=== PATIENT | female | born 2000 | race Caucasian/White ===

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

== ENCOUNTER 2023-09-11 20:46 | Emergency (ER) | payer OTHER, SELFPAY ==
--- NOTE | ~2023-09-11 | XR_ITS ---
EXAMINATION: XR CHEST CLINICAL INFORMATION: Chest pain COMPARISON: None available. TECHNIQUE: 2 views of the chest were obtained. FINDINGS: The cardiac and mediastinal contours are normal. The lungs are clear. No pleural effusion or pneumothorax. Mild thoracolumbar scoliosis. Bony structures are otherwise unremarkable. XR/XR chest 2V IMPRESSION: No evidence for acute disease in the chest.
--- NOTE | 2023-09-11 20:52 | ECG_ITS ---
Test Reason : CHEST PAIN Blood Pressure : / mmHG Vent. Rate : 061 BPM Atrial Rate : 061 BPM P-R Int : 110 ms QRS Dur : 090 ms QT Int : 418 ms P-R-T Axes : 017 077 066 degrees QTc Int : 420 ms Sinus rhythm with short MI Otherwise normal ECG No previous ECGs available Referred By: Ramila Nowak Electronically Signed By:BRENDA MARINO
[2023-09-11 21:22] LABS: Basophils Percent Auto 0.5 % (0-2); Eosinophils Absolute Auto 0.1 X10*3/uL (0.0-0.4); Hematocrit 37.3 % (37.0-47.0); Hemoglobin 13.2 g/dl (12.0-16.0); Imm Gran Abs Auto 0.02 X10*3/uL (0.00-0.03); Imm Gran Pct Auto 0.2 % (0.0-0.4); Lymphocytes Absolute Auto 2.4 X10*3/uL (1.2-4.9); Lymphocytes Percent Auto 27.4 % (20-40); MANUAL DIFF FLAG NO; Mean Corpuscular HGB Conc 35.4 g/dl (31.0-35.0); Mean Corpuscular Hemoglobin 30.8 pg (27.0-33.0); Mean Corpuscular Volume 86.9 fL (80.0-98.0); Monocytes Absolute Auto 0.6 X10*3/uL (0.1-1.2); Monocytes Percent Auto 7.1 % (2-11); Neutrophils Absolute Auto 5.6 x10*3/uL (2.0-8.3); Neutrophils Percent Auto 63.8 % (45-73); Platelet Count 259 X10*3/uL (160-400); Red Blood Count 4.29 X10*6/uL (4.20-5.50); Red Cell Distribution Width 12.4 % (11.0-16.0); White Blood Count 8.8 X10*3/uL (4.8-10.8)
[2023-09-11 21:23] LABS: INTERNATIONAL NORM RATIO 0.9 (0.9-1.1); Prothrombin Time 11.5 SEC (11.1-13.3)
[2023-09-11 21:31] VITALS: BP 117/82; PULSE 50; RESP 18; TEMP 36; O2SAT 100; BMI 19.1
[2023-09-11 21:37] LABS: Alanine Aminotransferase 9 U/L (0-31); Albumin Level 4.3 g/dL (3.5-5.0); Alkaline Phosphatase 35 U/L (39-117); Anion Gap 11 (12-20); Aspartate Amino Transferase 15 U/L (5-31); Bilirubin Total 0.5 mg/dL (0.0-1.0); Blood Urea Nitrogen 10 mg/dL (9-16); Calcium 9.5 mg/dL (8.4-10.2); Carbon Dioxide 28 mmol/L (22-29); Chloride 107 mmol/L (96-108); Creatinine Clr Calc Pharmacy 83.5; Estimated Glomerular Filt Rate > 60; Glucose Random 84 mg/dL (60-115); Lipase 22 U/L (8-78); Magnesium 2.1 mg/dL (1.6-2.6); Potassium 4.6 mmol/L (3.3-5.1); Sodium 141 mmol/L (135-145)
[2023-09-11 21:38] LABS: HCG Quantitative < 2 mIU/mL; Troponin-I High Sensitivity < 2.7 ng/L (<3.5-17.0)
[2023-09-11 23:17] VITALS: BP 123/80; PULSE 60; RESP 16; TEMP 36.4; O2SAT 100
--- NOTE | 2023-09-12 00:06 | ED.CHESTPAIN ---
HPI - Chest Pain General Chief Complaint: Chest Pain Stated Complaint: Chest pain Time Seen by Provider: 09/11/23 23:17 History of Present Illness HPI narrative: Patient is 23 years old presents today with having chest pain that is mid chest it is sharp. Nonradiating. Generalized malaise. Denies any shortness of breath no nausea no vomiting. Took an ibuprofen with only moderate relief. Patient from home. No history of diabetes, hypertension, high cholesterol, smoking, mi. no history of recreational drug use. No history of leg swelling. No history of blood clots. Patient is from home. Related Data Allergies Allergy/AdvReac Type Severity Reaction Status Date / Time amoxicillin Allergy Rash Verified 09/11/23 21:31 Review of Systems Review of Systems: Positive chest pain mid chest Yes all other systems are reviewed and are negative PMFSH Past Medical History Attestation statement: The following information was validated with the patient. Onset Date is defined in the Problem List Problems that require an onset date and time if occurred within 24 hrs of arrival to the ED Aortic Dissection and Rupture; Neurologic impairment; Cardiopulmonary Arrest; Endotracheal Intubation; Insertion or Replacement of Mechanical Circulatory Assist Device Social History Social History Alcohol intake: current Alcohol intake frequency: a few times a month Smoked in Last 30 Days: No Use of substances other than those prescribed or required for medical reasons: No Advance Directives: No Advance Directives Information Provided: Yes Patient : No Physical Exam Vital Signs: Vital Signs: Last Vital Signs Temp 97.5 F 09/11/23 23:17 Pulse 60 09/11/23 23:17 Resp 16 09/11/23 23:17 BP 123/80 09/11/23 23:17 Pulse Ox 100 09/11/23 23:17 O2 Del Method Room Air 09/11/23 23:17 BMI result Body Mass Index 19.1 Appearance: Alert. Oriented X3. No acute distress. Eyes: Pupils equal, round and reactive to light. ENT: Pharynx normal. Neck: Normal inspection. Neck supple. No lymph nodes noted. No crepitus CVS: Normal heart rate and rhythm. Pulses normal. Normal S1 and S2 Respiratory: No respiratory distress. Breath sounds normal. No Wheezing. No rales Abdomen: Soft and nontender. No rigidity. No distention. good BS x4 Skin: Skin warm and dry. Normal skin color. Normal skin turgor. Extremities: No lower extremity edema. Neurovascular intact to all extremities. No Lacerations. No Rash Neuro: Oriented X 3. No motor deficit. No sensory deficit. Moving all extermities. No slurred speech Medical Decision Making Medical Decision Making [facility] Narrative: My interpretation patient's EKG showed a sinus rhythm heart rate is 60 NH QRS QTC within normal limits is no acute ST segment elevation. My interpretation patient's chest x-ray is grossly negative. There has no evidence of pneumonia there is no evidence of pneumothorax there is no evidence of rib fracture patient's troponin x1 set was negative. In the setting of extremely low risk no cardiac risk factors she is 23 years old unlikely to have an ACS. Patient has no risk for PE. Here comfortable letting the patient go. Follow-up on outpatient basis. Differential Diagnosis Differential Diagnoses: The differential diagnosis associated with the presentation includes Atypical chest pain, ACS, pneumonia, pneumothorax, PE Admission/Observation Consideration of admission/observation: Escalation of care including admission/observation considered No need for admission as patient is well-appearing Lab Data [facility] Lab Attestation statement: I reviewed the patient's lab results. 09/11/23 20:59 09/11/23 20:58 Labs: Lab Results 09/11/23 09/11/23 09/11/23 Range/Units 20:58 20:59 21:09 WBC 8.8 (4.8-10.8) X10*3/uL RBC 4.29 (4.20-5.50) X10*6/uL Hgb 13.2 (12.0-16.0) g/dl Hct 37.3 (37.0-47.0) % MCV 86.9 (80.0-98.0) fL MCH 30.8 (27.0-33.0) pg MCHC 35.4 H (31.0-35.0) g/dl RDW 12.4 (11.0-16.0) % Plt Count 259 (160-400) X10*3/uL MPV 10.0 (9.4-12.3) fL Immature Gran % (Auto) 0.2 (0.0-0.4) % Neut % (Auto) 63.8 (45-73) % Lymph % (Auto) 27.4 (20-40) % Floyd % (Auto) 7.1 (2-11) % Eos % (Auto) 1.0 (0-4) % Baso % (Auto) 0.5 (0-2) % Lymph # (Auto) 2.4 (1.2-4.9) X10*3/uL Floyd # (Auto) 0.6 (0.1-1.2) X10*3/uL Eos # (Auto) 0.1 (0.0-0.4) X10*3/uL Baso # (Auto) 0.0 (0.0-0.2) X10*3/uL Abs Immat Gran (auto) 0.02 (0.00-0.03) X10*3/uL Absolute Neuts (auto) 5.6 (2.0-8.3) x10*3/uL Absolute Nucleated RBC 0.000 (0.0-0.012) X10*3/uL Nucleated RBC % (auto) 0.0 (0.0-0.2) /100WBC PT 11.5 (11.1-13.3) SEC INR 0.9 (0.9-1.1) Hold Blue Top SEE NOTE Sodium 141 (135-145) mmol/L Potassium 4.6 (3.3-5.1) mmol/L Chloride 107 (96-108) mmol/L Carbon Dioxide 28 (22-29) mmol/L Anion Gap 11 L (12-20) BUN 10 (9-16) mg/dL Creatinine 0.87 (0.5-1.4) mg/dL Estim Creat Clear Calc 83.5 Estimated GFR > 60 Random Glucose 84 (60-115) mg/dL Calcium 9.5 (8.4-10.2) mg/dL Magnesium 2.1 (1.6-2.6) mg/dL Total Bilirubin 0.5 (0.0-1.0) mg/dL AST 15 (5-31) U/L ALT 9 (0-31) U/L Alkaline Phosphatase 35 L (39-117) U/L Troponin I High Sens < 2.7 (<3.5-17.0) ng/L Total Protein 7.0 (6.5-8.0) g/dL Albumin 4.3 (3.5-5.0) g/dL Lipase 22 (8-78) U/L Beta HCG, Quant < 2 mIU/mL Independent Interpretation I performed an independent interpretation of an: EKG (Sinus heart rate is 60 NH QRS QTC within normal limits is no acute ST segment elevation) and Plain X-Ray (Chest x-ray grossly negative) Radiology Impression Discussion of test interpretation with radiology: I have reviewed the radiologist's reading. Prescription Management No need for additional pain medication patient well-appearing Chronic Conditions No significant past medical history Discharge Plan Discharge Clinical Impression: Atypical chest pain Patient Disposition: Home, Self-Care Instructions: Chest Pain (ED) Referrals: Brad Adams MD [Physician] - 09/14/23
[2023-09-12 00:16] VITALS: BP 128/67; PULSE 52; RESP 14; TEMP 36.6; O2SAT 100
== END 2023-09-12 00:23 | disposition home or self-care (01) ==
PROVIDERS: Physician Assistant Medical; Emergency Provider Emergency Medicine Emergency Medical Services
DX: R07.89 Other chest pain (principal)
CPT/HCPCS: 36415; 71046; 80053; 83690; 83735; 84484; 84702; 85025; 85610; 93005; 99283; 99284

== ENCOUNTER → 2023-09-11 20:52 | Outpatient (BNV) | payer OTHER, SELFPAY | PROVIDERS: Emergency Provider Emergency Medicine Emergency Medical Services; Visit Provider Internal Medicine | DX: R07.9 Chest pain, unspecified (principal) | CPT/HCPCS: 93010 ==

== ENCOUNTER 2024-05-31 08:09 | Outpatient (AMB) | payer OTHER, SELFPAY ==
--- NOTE | 2024-05-31 08:22 | MHC.OFFWIV ---
Intake Vital Signs 05/31/24 08:23 Height 5 ft 5 in Weight 125 lb BMI 20.8 BP 112/70 Blood Pressure Location Lt brachial Position Sitting Pulse 69 Pulse Source Pulse Oximeter Temp 98.2 F Temp Source Oral Pulse Oximetry (%) 96 Oxygen Delivery Method Room Air Intake Visit Reasons: EP cough, chest pain, phlegm Intake Note: Patient here for cough, congestion headaches and slight chest pain when coughing. Patient Tobacco Use Status: Never used Tobacco Allergies amoxicillin Allergy (Verified 05/31/24 08:24) Rash Do you need a note to return to daycare/school/sports/work: No HPI HPI Comments History of Present Illness Details Patient is a 24-year-old female complaining of a productive cough with yellow phlegm, shortness of breath after she coughs and chest congestion for 5 days. She tells me she did have some headaches when she 1st got sick but those have resolved. She denies any fevers, nausea, vomiting, diarrhea, sinus pain, ear pain or history of asthma. She states she did not test for COVID at home. She tells me that at her workplace there have been quite a few cases of lobar pneumonia and she wants to make sure she does not have pneumonia. [facility] Social History Alcohol intake: current Alcohol intake frequency: a few times a month Patient Tobacco Use Status: Never used Tobacco Review of Systems Const All systems reviewed & are unremarkable except as noted in HPI and below Physical Exam Vital Signs: Last Vital Signs Temp 98.2 F 05/31/24 08:23 Pulse 69 05/31/24 08:23 BP 112/70 05/31/24 08:23 Pulse Ox 96 05/31/24 08:23 Oxygen Delivery Method Room Air 05/31/24 08:23 BMI result Body Mass Index 20.8 Const General: cooperative, healthy appearing, comfortable and no acute distress Orientation/consciousness: patient oriented x3 Limitations: no limitations HEENT Head: Yes normal to inspection Ears: hearing grossly normal bilaterally, external ears normal and TM's normal bilaterally General nose exam: Normal external nose present, Normal nares present and No nasal discharge present Face and sinus: Yes normal facial exam and Yes sinuses nontender Mouth: Normal oral and palatal mucosa present and moist mucous membranes Throat: Yes tonsils normal, Yes uvula midline and Yes posterior oropharynx abnormal (Erythema) Eyes General: appearance normal, both eyes and all related structures Neck Neck: Yes normal visual inspection Resp Effort & Inspection: normal respiratory effort, able to speak in complete sentences, no respiratory distress, not tachypneic, no tripod positioning and no use of accessory muscles Auscultation: clear to auscultation bilaterally Cardio Rate: regular rate Rhythm: regular rhythm Heart sounds: normal S1 and S2 Skin General skin exam: no rashes or lesions noted Neuro General: patient oriented x3 Extrem General: Yes normal to inspection and Yes no clubbing, cyanosis or edema Assessment & Plan Assessment & Plan (1) URI (upper respiratory infection): Code(s): J06.9 - Acute upper respiratory infection, unspecified Qualifiers: URI type: unspecified viral URI Qualified Code(s): J06.9 - Acute upper respiratory infection, unspecified Plan: Vital signs are stable, patient well-appearing and lung sounds are clear. Sent inhaler and Tessalon Perles to pharmacy, counseled patient that this likely viral. Sent flu COVID and RSV Plan See above Orders: Orders SARS-CoV2/FLU/RSV Today J06.9 - Acute upper respiratory infection, unspecified Medications: New albuterol sulfate 90 mcg/actuation (Ventolin HFA) 2 puffs inhalation Q4-6H PRN 8.5 grams 0RF shortness of breath or wheezing benzonatate 200 mg PO TID PRN 14 caps 0RF cough Coding Level of Care Code New Pt Level 3 (49992) Diagnoses Viral upper respiratory tract infection J06.9 URI type: unspecified viral URI
[2024-05-31 08:23] VITALS: BP 112/70; PULSE 69; TEMP 36.8; O2SAT 96; BMI 20.8
== END 2024-05-31 08:46 | disposition home or self-care (01) ==
PROVIDERS: Visit Provider Physician Assistant
DX: J06.9 Acute upper respiratory infection, unspecified (principal)

== ENCOUNTER 2024-05-31 08:09 | Outpatient (REF) | payer OTHER, SELFPAY ==
[2024-05-31 10:55] LABS: Influenza A PCR NEGATIVE (Negative); Influenza B PCR NEGATIVE (Negative); Resp Syncy Virus RNA Qual PCR NEGATIVE (Negative); SARS COV2 PCR INHOUSE NEGATIVE (Negative)
== END 2024-05-31 08:10 | disposition home or self-care (01) ==
LOC: HO.LAB 08:09
PROVIDERS: Visit Provider Physician Assistant
DX: J06.9 Acute upper respiratory infection, unspecified (principal)
CPT/HCPCS: 0241U

== ENCOUNTER 2025-04-13 07:46 | Outpatient (AMB) | payer OTHER, SELFPAY ==
--- NOTE | 2025-04-13 08:41 | MHC.PC.OV ---
Vital Signs 04/13/25 08:44 Height 5 ft 5.51 in Weight 130 lb 6 oz BMI 21.4 BP 122/74 Blood Pressure Location Lt brachial Position Sitting Respiration 12 Pulse 78 Pulse Source Pulse Oximeter Temp 98.1 F Temp Source Oral Pulse Oximetry (%) 98 Oxygen Delivery Method Room Air Intake Visit Reasons: [employer]ERSON [employer] Establish Care/Physical Intake Note: New patient visit Cardroom Attendant Required: No Allergies amoxicillin Allergy (Verified 04/13/25 08:44) Rash Medication List - Last Reconciled 04/13/25 by Kisha Baez PA-C drospirenone-ethinyl estradiol 3-0.02 mg 1 tab PO DAILY fluoxetine 20 mg PO DAILY fluoxetine 20 mg PO DAILY hydroxyzine HCl 25 mg PO DAILY Tobacco use date assessed: 04/13/25 Dental Screening Dental Screen Date: 04/13/25 Did you have a dental visit in the last 12 months?: Yes Did you have a dental problem in the last 6 months where you did not have access to dental care?: No Was dental information given to patient?: Patient has dentist HPI [employer]ERSON [employer] Establish Care/Physical HPI Details Pt is a 24-year-old female who presents today for a physical exam and to establish care. She is transferring from pediatrics. She reports a significant past history of anxiety and depression. -a week ago she noticed dysuria x3 days. She also had some increased urinary frequency and urgency. She would like to make sure that she has not have a UTI. No fever or chills. Did not take any medication for this. No abdominal pain, abnormal vaginal discharge or bleeding. She is sexually active. Psych: has a hx of anxiety and depression and states that she has been well-controlled on fluoxetine 30 mg and hydroxyzine 25 mg as needed. 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 Follows with [facility] Surgical History (Updated 04/13/25 @ 09:00 by Hannah Smith CMA) No pertinent past surgical history Family History (Updated 04/13/25 @ 09:02 by Hannah Smith CMA) Mother HTN (hypertension) Anxiety Maternal Grandmother Anxiety Depression Other FH: mental illness Social History (Updated 04/13/25 @ 09:03 by Hannah Smith CMA) Housing: House Alcohol intake: current Alcohol intake frequency: a few times a month Patient Tobacco Use Status: Never used Tobacco e-Cigarette/Vaping Use: Never Used Second Hand Smoke Exposure: No service: No Current occupational status: employed Current occupation: [employer] Current occupational exposures/hazards: No Cognitive needs: No Hearing needs: No Vision needs: No Questionnaire PHQ-9 Over the last 2 weeks, how often have you been bothered by any of the following problems? 1. Little interest or pleasure in doing things: several days 2. Feeling down, depressed, or hopeless: several days 3. Trouble falling or staying asleep, or sleeping too much: not at all 4. Feeling tired or having little energy: several days 5. Poor appetite or overeating: several days 6. Feeling bad about yourself - or that you are a failure or have let yourself or your family down: not at all 7. Trouble concentrating on things, such as reading the newspaper or watching television: not at all 8. Moving or speaking so slowly that other people could have noticed. Or the opposite - being so fidgety or restless that you have been moving around a lot more than usual: not at all 9. Thoughts that you would be better off or of hurting yourself in some way: not at all Total score: 4 Depression Screening Interpretation: Positive Depression Screening Follow-up: Existing condition and In treatment Depression Screening Done: Yes 88292 - PHQ-9 Billing: Yes Source: Developed by Drs. Damion Mckay, Melina Crespo, Gilberto Chavez and colleagues, with an educational amrita from [employer]. Thrive Questionnaire Date Thrive assessed: 04/09/25 I am a: Patient What is your living situation today?: I have a steady place to live Within the past 12 months, did the food you bought not last and you didn't have the money to get more?: Never true Within the past 12 months, did you worry whether your food would run out before you got money to buy more?: Never true Do you have trouble paying for medicines?: No Do you have trouble getting transportation to medical appointments?: No Do you have trouble paying your heating and electricity bill?: No Do you have trouble taking care of your child, family member or friend?: No Do you have trouble with day-to-day activities such as bathing, preparing meals, shopping, managing finances, etc.?: No Are you currently unemployed and looking for a job?: No Are you interested in more education?: I choose not to answer this question Please select the resources that you would like help with: None Currently or been in a relationship where the following occur: No concerns reported THRIVE Score: 0 AUDIT C Alcohol Use Questionnaire (AUDIT-C) 1. How often do you have a drink containing alcohol?: Monthly or less 2. How many drinks containing alcohol do you have on a typical day when you are drinking?: 1 or 2 3. How often do you have six or more drinks on one occasion?: Never Total Score: 1 SATHYA-7 AMB Questionnaire SATHYA-7 Date SATHYA - 7 assessed: 04/13/25 Feeling nervous, anxious, or on edge: 1 = Several days Not being able to stop or control worryin = Several days Worrying too much about different things: 0 = Not at all Trouble relaxin = Not at all Being so restless that it is hard to sit still: 1 = Several days Becoming easily annoyed or irritable: 1 = Several days Feeling afraid as if something awful might happen: 1 = Several days Total SATHYA-7 score (0-4 normal; 5-9 mild; 10-14 moderate; 15-21 severe): 5 Source: Developed by Drs. Damion Mckay, Melina Crespo, Gilberto Chavez and colleagues, with an educational amrita from [employer]. SATHYA-7 Assessment Billing SATHYA-7 Assessment Tool: SATHYA-7 Assessment [id number] Physical exam (Primary Care) Vital Signs: Last Vital Signs Temp 98.1 F 04/13/25 08:44 Pulse 78 04/13/25 08:44 Resp 12 04/13/25 08:44 BP 122/74 04/13/25 08:44 Pulse Ox 98 04/13/25 08:44 Oxygen Delivery Method Room Air 04/13/25 08:44 BMI result Body Mass Index 21.4 Tobacco/Smoking Status: Tobacco use Status Tobacco use date assessed 04/13/25 04/13/25 08:52 Patient Tobacco Use Status Never used Tobacco 04/13/25 09:03 e-Cigarette/Vaping Use Never Used 04/13/25 09:03 PHQ-9: PHQ-9 Score PHQ-9: Total score 4 04/13/25 09:03 Depression Screening Interpretation: Positive Depression Screening Follow-up: Existing condition and In treatment Thrive Assessment: Date of Thrive Assessment Date Thrive assessed 04/09/25 04/13/25 08:43 Currently or been in a relationship where the following occur: No concerns reported Const Orientation/consciousness: patient oriented x3 HENMT Ears: hearing grossly normal bilaterally and TM's normal bilaterally General nose exam: No nasal polyps present Face and sinus: Yes sinuses nontender Mouth: Normal oral and palatal mucosa present Eyes Pupils: Equal, round and reactive pupils present EOM: EOMs intact bilaterally Neck Neck: Yes full ROM and Yes no lymphadenopathy Thyroid: Thyroid normal Chest Chest palpation & inspection: normal inspection of the chest Resp Auscultation: clear to auscultation bilaterally Cardio Rate: regular rate Rhythm: regular rhythm Heart sounds: S1 normal heart sound present and S2 normal heart sound present Peripheral pulses: Peripheral pulses 2+ throughout GI Other: Soft, nontender Auscultation: normal bowel sounds Rectal Exam - Female: deferred General: Yes no CVA tenderness Back/Spine/Pelvis Other: Nontender Back: no CVA tenderness Skin General skin exam: no rashes or lesions noted Neuro General: patient oriented x3, gait normal, CN's II-XI intact bilaterally and deep tendon reflexes 2+ bilaterally Cranial nerves: Yes Equal, round and reactive pupils present Motor exam (neuro): 5/5 motor strength present throughout Sensory Exam: double simultaneous stimulation for sensation normal Coordination: [id number] test normal and Romberg test negative Extrem General: Yes normal to inspection and Yes full ROM Psych Affect: normal affect Attitude: cooperative Thought process: Normal thought process present Thought content: Normal thought content present Insight: Good insight present (Psych) Judgement: Good judgement present (Psych) Coding Level of Care Code New Pt Level 2 (07597) New Pt Prev Care 18-39yr(65989 Diagnoses Encounter for routine history and physical examination Z00.00 Generalized anxiety disorder F41.1 Major depressive disorder, recurrent F33.9 Dysuria R30.0 Additional Codes SATHYA-7 Assessment Billing - SATHYA-7 Assessment Tool: SATHYA-7 Assessment [id number] ([id number]) PHQ-9 - 54888 - PHQ-9 Billing: Yes ([id number]) Assessment & Plan Assessment & Plan (1) Encounter for routine history and physical examination: Code(s): Z00.00 - Encounter for general adult medical examination without abnormal findings Plan: Health maintenance reviewed. Labs ordered today. (2) Generalized anxiety disorder: Code(s): F41.1 - Generalized anxiety disorder Category: Medical Plan: Refilled fluoxetine and hydroxyzine today. She will continue current regimen. She will let me know if anything worsens or changes. (3) Major depressive disorder, recurrent: Code(s): F33.9 - Major depressive disorder, recurrent, unspecified Category: Medical Plan: Overall stable. As above. No SI/HI. (4) Dysuria: Code(s): R30.0 - Dysuria Plan: UA and culture ordered. Chlamydia and gonorrhea tests ordered as well per patient request. We will follow up pending test results. She will follow up if symptoms return or if anything worsens or changes. Orders: Orders Comprehensive [place]. Panel Fast Today F33.9 - Major depressive disorder, recurrent, unspecified, F41.1 - Generalized anxiety disorder, R30.0 - Dysuria, Z00.00 - Encounter for general adult medical examination without abnormal findings Complete Blood Count Auto Diff Today F33.9 - Major depressive disorder, recurrent, unspecified, F41.1 - Generalized anxiety disorder, R30.0 - Dysuria, Z00.00 - Encounter for general adult medical examination without abnormal findings UA CC w/rflx Micro + Cult Today R30.0 - Dysuria Lipid Panel Today F33.9 - Major depressive disorder, recurrent, unspecified, F41.1 - Generalized anxiety disorder, R30.0 - Dysuria, Z00.00 - Encounter for general adult medical examination without abnormal findings TSH reflex Free T4 Today F33.9 - Major depressive disorder, recurrent, unspecified, F41.1 - Generalized anxiety disorder, R30.0 - Dysuria, Z00.00 - Encounter for general adult medical examination without abnormal findings CT NG by PCR Urine Today R30.0 - Dysuria Medications: New fluoxetine take with the 10 mg cap for a total of 30 mg daily 20 mg PO DAILY 90 tabs 3RF hydroxyzine HCl 25 mg PO DAILY PRN 90 tabs 3RF anxiety fluoxetine take with the 20 mg cap for a total of 30 mg daily 10 mg PO DAILY 90 caps 3RF
[2025-04-13 08:44] VITALS: BP 122/74; PULSE 78; RESP 12; TEMP 36.7; O2SAT 98; BMI 21.4
== END 2025-04-13 09:16 | disposition home or self-care (01) ==
LOC: HO.HMCFM 07:47
PROVIDERS: PCP Physician Assistant; Visit Provider Physician Assistant
DX: Z00.00 Encounter for general adult medical examination without abnormal findings (principal); R30.0 Dysuria; F41.1 Generalized anxiety disorder; F33.9 Major depressive disorder, recurrent, unspecified

== ENCOUNTER → 2025-04-13 07:46 | Outpatient (BNVA) | payer OTHER, SELFPAY | PROVIDERS: PCP Physician Assistant; Visit Provider Physician Assistant | DX: Z00.00 Encounter for general adult medical examination without abnormal findings (principal); R35.0 Frequency of micturition; R39.15 Urgency of urination; F41.1 Generalized anxiety disorder; F33.9 Major depressive disorder, recurrent, unspecified; R30.0 Dysuria | CPT/HCPCS: 96127 ==

== ENCOUNTER 2025-05-16 11:59 | Outpatient (AMB) | payer OTHER, SELFPAY ==
[2025-05-16 12:04] VITALS: BP 120/84; PULSE 89; TEMP 36.7; O2SAT 99; BMI 21.1
--- NOTE | 2025-05-16 12:04 | MHC.OFFWIV ---
Intake Vital Signs 05/16/25 12:04 Height 5 ft 5 in Weight 127 lb BMI 21.1 BP 120/84 Blood Pressure Location Lt brachial Position Sitting Pulse 89 Pulse Source Pulse Oximeter Temp 98.0 F Temp Source Oral Pulse Oximetry (%) 99 Oxygen Delivery Method Room Air Intake Visit Reasons: ep uti peeing blood dizziness Intake Note: pt presents with urine frequency, hematuria and dizziness starting this morning. took an otc tablet for UTI Patient Tobacco Use Status: Never used Tobacco Allergies amoxicillin Allergy (Verified 05/16/25 12:11) Rash Do you need a note to return to daycare/school/sports/work: Yes HPI HPI Comments History of Present Illness Details History - The patient is a 24-year-old female presenting with symptoms suggestive of a urinary tract infection. - Symptoms began today, including burning, pain during urination, urinary frequency, and urgency. - The patient reports nausea, vomiting, dizziness, and hematuria. - No fever or back pain reported; discomfort is localized to the front. - Recent menstrual period completed; no new sexual partners. - Allergy to amoxicillin - She took Azo taken for symptom relief. - She has some abdominal pain. - She denies back pain, CP, SOB, vaginal discharge, or lesions. Physical Exam General: Cooperative, healthy appearing, comfortable, no acute distress and well developed Cardiac: Normal S1 and S2. RRR, no M/R/G noted. Respiratory: Normal respiratory effort and able to speak in complete sentences. Clear to auscultation bilaterally. No w/r/r noted. Skin: No rashes or lesions noted. GI: Normal inspection. Normal BS noted. Soft, non-tender, non-distended. No TTP of all 4 quadrants. No guarding or rebound tenderness noted. Back: Negative CVA bilaterally Patient was informed and verbally consented to the use of an ambient scribe for clinic note documentation during this visit. [facility] Surgical History (Updated 04/13/25 @ 09:00 by Hannah Smith CMA) No pertinent past surgical history Family History (Updated 04/13/25 @ 09:02 by Hannah Smith CMA) Mother HTN (hypertension) Anxiety Maternal Grandmother Anxiety Depression Other FH: mental illness Social History (Updated 04/13/25 @ 09:03 by Hannah Smith CMA) Housing: House Alcohol intake: current Alcohol intake frequency: a few times a month Patient Tobacco Use Status: Never used Tobacco e-Cigarette/Vaping Use: Never Used Second Hand Smoke Exposure: No service: No Current occupational status: employed Current occupation: [employer] Current occupational exposures/hazards: No Cognitive needs: No Hearing needs: No Vision needs: No Review of Systems Const All systems reviewed & are unremarkable except as noted in HPI and below Physical Exam Vital Signs: Last Vital Signs Temp 98.0 F 05/16/25 12:04 Pulse 89 05/16/25 12:04 BP 120/84 05/16/25 12:04 Pulse Ox 99 05/16/25 12:04 Oxygen Delivery Method Room Air 05/16/25 12:04 BMI result Body Mass Index 21.1 Results AMB Urinalysis, Automated UA Leukoctes 500 Eneida/uL Last Edit by Ana Cristina Abraham MA on 05/16/25 12:58 3+ Ana Cristina Abraham 05/16/25 12:58 UA Nitrite Positive Last Edit by Ana Cristina Abraham MA on 05/16/25 12:58 UA Urobilinogen 9 mg/dL Last Edit by Ana Cristina Abraham MA on 05/16/25 12:58 3+ Ana Cristina Abraham 05/16/25 12:58 UA Protein 30 mg/dL Last Edit by Ana Cristina Abraham MA on 05/16/25 12:58 1+ Ana Cristina Abraham 05/16/25 12:58 UA pH 5.0 Last Edit by Ana Cristina Abraham MA on 05/16/25 12:58 UA Blood 200 [place]/uL Last Edit by Ana Cristina Abraham MA on 05/16/25 12:58 3+ Ana Cristina Abraham 05/16/25 12:58 UA Specific [place] 1.025 Last Edit by Ana Cristina Abraham MA on 05/16/25 12:58 UA Ketone Positive Last Edit by Ana Cristina Abraham MA on 05/16/25 12:58 UA Bilirubin 4 mg/dL Last Edit by Ana Cristina Abraham MA on 05/16/25 12:58 3+ Ana Cristina Abraham 05/16/25 12:58 UA Glucose 250 mg/dL Last Edit by Ana Cristina Abraham MA on 05/16/25 12:58 1+ Ana Cristina Abraham 05/16/25 12:58 Results Reviewed Results Reviewed: Laboratory Last Values Urine pH (Auto) 5.0 05/16/25 12:51 Specific [place] (Auto) 1.025 05/16/25 12:51 Urine Protein (Auto) 30 mg/dL H* 05/16/25 12:51 Glucose (UA)(Auto) 250 mg/dL H* 05/16/25 12:51 Urine Ketones (Auto) Positive A* 05/16/25 12:51 Urine Blood (Auto) 200 [place]/uL H* 05/16/25 12:51 Urine Nitrite (Auto) Positive A* 05/16/25 12:51 Urine Bilirubin (Auto) 4 mg/dL H* 05/16/25 12:51 Urine Urobilinogen (Auto) 9 mg/dL H* 05/16/25 12:51 Leukocyte Esterase (Auto) 500 Eneida/uL H* 05/16/25 12:51 Assessment & Plan Assessment & Plan (1) Dysuria: Code(s): R30.0 - Dysuria Plan Most likely UTI vs pyelonephritis UA in the office today Plan - Prescribe antibiotics and nausea medication to manage symptoms and prevent progression to pyelonephritis. - Advise increased fluid intake to prevent dehydration and support recovery. - Recommend monitoring symptoms and seeking emergency care if no improvement in 24 hours or if symptoms worsen. - Plan to send a urine culture to ensure appropriate bacterial coverage. Orders: Orders AMB Urinalysis Automated Today Z13.9 - Encounter for screening, unspecified Urine Culture Today N39.0 - Urinary tract infection, site not specified Medications: New cefpodoxime must administer with a meal/food 200 mg PO Q12H 20 tabs 0RF 10 days phenazopyridine 100 mg PO tid PRN 6 tabs 0RF Pain ondansetron 4 mg PO Q8H PRN 10 tabs 0RF nausea and vomiting Coding Level of Care Code Est Pt Level 3 (70612) Diagnoses Dysuria R30.0
--- OUTSIDE RECORDS SUMMARY | 2025-05-16 14:51 | XMS_ITS | Patient Health Record ---
Author Organization [facility] [place] Address [address] [place] [address] Care Team Providers Care Equity Sales Assistant Name Role Phone Priyank Hallnah Primary Care Provider Unavailabl e Black, Linda Unavailable [phone] Allergies Allergen (clinical drug ingredient) Drug/Non Drug Allergy documented on EMR Reaction Allergy Type Onset Date Status amoxicillin Amoxicillin rash Drug Allergy Act sudarshan Reason For Referral No Information Medications Medication SIG (Take, Route, Frequency, Duration) Notes Start Date End Date Status Naprosyn 500 MG 1 tablet with food o r milk as needed Orally every 12 hrs; Duration: 14 days 06/15/2018 Active Methylphenidate HCl ER (XR) 50 MG Orally Active Social History Tobacco Use: Social History Observation Description Date Details (start date - stop date) Never Smoker NA - NA Tobacco Use/Smoking Question Answer Notes Are you a: nonsmoker Additional Findings: Tobacco Non-User Current no n-smoker Alcohol Screen Question Answer Notes Did you have a drink containing alcohol in the p ast year? No Points 0 Interpretation Negative Tobacco use other than smoking: Question Answer Notes Are you an other tobacco user? 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
== END 2025-05-16 12:51 | disposition home or self-care (01) ==
PROVIDERS: PCP Physician Assistant; Visit Provider Physician Assistant Medical
DX: Z13.9 Encounter for screening, unspecified (principal); R30.0 Dysuria

== ENCOUNTER → 2025-05-16 11:59 | Outpatient (BNVA) | payer OTHER, SELFPAY | PROVIDERS: PCP Physician Assistant; Visit Provider Physician Assistant Medical | DX: R30.0 Dysuria (principal); N39.0 Urinary tract infection, site not specified | CPT/HCPCS: 81003 ==